=== PATIENT | female | born 1950 ===

== ENCOUNTER 2022-06-23 11:22 | Inpatient (IN) | payer BC, OTHER ==
[2022-06-23] MEDS ORDERED: RAPID SEQUENCE INTUBATION KIT NR ONE (11:32)
[2022-06-23] MEDS ORDERED: PROPOFOL 1,000,000 MCG/100 ML VIAL ONE (11:39)
[2022-06-23 11:40] VITALS: BMI 40.3
[2022-06-23 13:00] LABS: VENOUS BASE EXCESS -15.5 mmol/L (-2-2); VENOUS O2 SATURATION 67.8 % (70-80); VENOUS PCO2 50.2 mmHg (38-52)
[2022-06-23 13:03] LABS: VENOUS PH 7.065 (7.310-7.410)
[2022-06-23] MEDS ORDERED: CEFEPIME HCL/D5W 1 GM/50 ML BAG IVPB ONE (13:14)
[2022-06-23] MEDS ORDERED: VANCOMYCIN 1 GM in D5W (PRE-DOCKED) 1,000 MG/250 ML (RESTRICTED TO ID ONLY IVPB ONE (13:14)
[2022-06-23] MEDS ORDERED: PROPOFOL 1,000,000 MCG/100 ML VIAL IVPB SCH (13:15)
[2022-06-23 13:16] LABS: POTASSIUM 3.3 mmol/L (3.5-5.1)
[2022-06-23] MEDS ORDERED: NOREPINEPHRINE BITARTRATE 4 MG/4 ML ML IV ONE (13:16)
[2022-06-23 13:18] LABS: CALCIUM 7.7 mg/dL (8.5-10.1)
[2022-06-23 13:18] LABS: INR 1.03 (0.83-1.09)
[2022-06-23 13:19] LABS: ALBUMIN 2.1 g/dl (3.4-5.0); BLOOD UREA NITROGEN 42.2 mg/dL (7-18); MAGNESIUM 1.9 mg/dL (1.8-2.4)
[2022-06-23 13:20] LABS: ACTIVATED PTT 18.4 SECONDS (25.2-36.5)
[2022-06-23] MEDS ORDERED: CALCIUM GLUC IN NACL, ISO-OSM 1 GM/50 ML BAG IVPB ONE (13:20)
[2022-06-23 13:22] LABS: CREATININE 2.5 mg/dL (0.55-1.3)
[2022-06-23 13:24] LABS: BILIRUBIN,TOTAL 0.6 mg/dL (0.2-1); TOT PROT 5.2 g/dl (6.4-8.2)
[2022-06-23 13:27] LABS: LACTIC ACID 12.1 mmol/L (0.4-2.0); N-TERMINAL BNP 1934.1 pg/ml (5-125)
[2022-06-23] MEDS: NOREPINEPHRINE BITARTRATE/D5W 8 MG/250 ML BAG IVPB SCH ×2 (13:30→17:44)
[2022-06-23] MEDS ORDERED: KCL 10 MEQ IVPB 10 MEQ/100 ML INFUS.BAG IVPB SCH (13:30)
[2022-06-23 13:32] LABS: PHOSPHOROUS 4.1 mg/dL (2.5-4.9)
[2022-06-23] MEDS ORDERED: VANCOMYCIN/WATER FOR INJ (PEG) 1,000 MG/200 ML BAG IVPB ONE (13:34)
[2022-06-23] MEDS ORDERED: CEFEPIME 1 GM/100 ML BAG IVPB ONE (13:36)
[2022-06-23] MEDS ORDERED: CALCIUM GLUCONATE 10% - 1,000 MG/10 ML VIAL ONE (13:43)
[2022-06-23] MEDS ORDERED: MIDAZOLAM IN 0.9 % SOD.CHLORID 100 MG/100 ML PLAST..BAG IVPB SCH (13:45)
[2022-06-23 14:44] LABS: BASO % 2.2 % (0-2.0); EOS % 0.5 % (0-4.5); HEMOGLOBIN 7.7 GM/dL (10.7-15.3); LYMPH % 33.4 % (8-40); MCH 26.1 pg (25.7-33.7); MCHC 30.9 g/dl (32.0-36.0); MEAN CELL VOLUME 84.7 fl (80-96); MONO % 1.7 % (3.8-10.2); NEUT % 62.2 % (42.8-82.8); PLATELET COUNT 164 10^3/uL (134-434); RBC 2.95 M/mm3 (3.60-5.2)
[2022-06-23 15:00] LABS: VENOUS BASE EXCESS -17.3 mmol/L (-2-2); VENOUS O2 SATURATION 62.8 % (70-80); VENOUS PCO2 65.8 mmHg (38-52)
[2022-06-23 15:00] LABS: CHLORIDE 119 mmol/L (98-107); SODIUM 153 mmol/L (136-145)
[2022-06-23 15:01] LABS: VENOUS PH 6.95 (7.310-7.410)
[2022-06-23 15:02] LABS: ALBUMIN 1.8 g/dl (3.4-5.0); BLOOD UREA NITROGEN 39.7 mg/dL (7-18); CALCIUM 7.9 mg/dL (8.5-10.1); CO2 19 mmol/L (21-32); GLUCOSE,RANDOM 215 mg/dL (74-106)
[2022-06-23 15:05] LABS: CREATININE 2.6 mg/dL (0.55-1.3); SGOT/AST 51 U/L (15-37); SGPT/ALT 37 U/L (13-61)
[2022-06-23 15:07] LABS: BILIRUBIN,TOTAL 0.6 mg/dL (0.2-1); TOT PROT 4.2 g/dl (6.4-8.2)
[2022-06-23] MEDS ORDERED: SODIUM BICARBONATE 8.4% 50 MEQ/50 ML DISP.SYRIN ONE (15:07)
[2022-06-23 15:08] LABS: ALK PHOS 175 U/L (45-117)
[2022-06-23] MEDS ORDERED: SODIUM BICARBONATE 8.4% 50 MEQ/50 ML VIAL IV ONE (15:08)
[2022-06-23 15:15] LABS: ANION GAP 16 MMOL/L (8-16); POTASSIUM 2.1 mmol/L (3.5-5.1)
[2022-06-23] MEDS: VASOPRESSIN 40 UNITS/100 ML BAG IV SCH ×2 (15:35→17:45)
[2022-06-23] MEDS ORDERED: VASOPRESSIN 20 UNITS/ML VIAL IV ONE ×2 (15:35→17:44)
[2022-06-23 15:48] LABS: MAGNESIUM 1.8 mg/dL (1.8-2.4)
[2022-06-23] MEDS ORDERED: FENTANYL NS IVPB 500 MCG/100 ML BAG IVPB SCH (16:00)
[2022-06-23 16:15] LABS: ARTERIAL BLD GAS O2 SATURATION 79.6 % (95-98); ARTERIAL BLOOD GAS BASE EXCESS -16.7 mmol/L (-2-2); ARTERIAL BLOOD GAS PO2 67.1 mmHg (80-100)
[2022-06-23 16:18] LABS: ARTERIAL BLOOD GAS pH 6.965 (7.350-7.450)
[2022-06-23 16:42] LABS: POTASSIUM 3.3 mmol/L (3.5-5.1)
[2022-06-23 16:44] LABS: ALBUMIN 1.7 g/dl (3.4-5.0); BLOOD UREA NITROGEN 39.8 mg/dL (7-18); CALCIUM 8.1 mg/dL (8.5-10.1)
[2022-06-23 16:47] LABS: CREATININE 2.5 mg/dL (0.55-1.3)
[2022-06-23 16:49] LABS: BILIRUBIN,TOTAL 0.6 mg/dL (0.2-1); TOT PROT 4.1 g/dl (6.4-8.2)
[2022-06-23] MEDS ORDERED: LACTATED RINGERS SOLUTION 1000 ML INFUS.BAG IV ONE (17:30)
[2022-06-23 17:39] LABS: EPI CELLS 8 /uL (0-25.1); HYALINE CASTS 1 /uL (0-3.1); URINE APPEARANCE TURBID; URINE BILIRUBIN NEGATIVE (NEGATIVE); URINE COLOR DK YELLOW; URINE GLUCOSE (UA) NEGATIVE (NEGATIVE); URINE KETONE NEGATIVE (NEGATIVE); URINE LEUK ESTERASE 3+ (NEGATIVE); URINE NITRITE NEGATIVE (NEGATIVE); URINE PROTEIN 2+ (NEGATIVE); URINE UROBILINOGEN 0.2 mg/dL (0.2-1.0); URINE WBC 11384 /uL (0-25.8)
[2022-06-23] MEDS: EPINEPHrine 1:1,000 1,000 MCG in DEXTROSE 5%-WATER - 249 ML IVPB SCH ×2 (17:57→18:22)
[2022-06-23 17:58] LABS: URINE BACTERIA MANY /uL (0-1359)
[2022-06-23 17:59] LABS: URINE CRYSTALS NONE SEEN /hpf; YEAST PRESENT (NEGATIVE)
[2022-06-23] MEDS ORDERED: EPINEPHrine 1:1,000 1,000 MCG in DEXTROSE 5%-WATER - 249 ML IVPB SCH ×2 (18:13→18:30)
[2022-06-23] MEDS ORDERED: SODIUM BICARBONATE 8.4% 50 MEQ/50 ML DISP.SYRIN IVPUSH STA ×2 (18:39→18:45)
[2022-06-23] MEDS ORDERED: SODIUM BICARBONATE 8.4% - 150 MEQ in DEXTROSE 5%-WATER - 950 ML IVPB SCH (19:00)
[2022-06-23 19:18] VITALS: RESP 24
[2022-06-23] MEDS ORDERED: SODIUM BICARBONATE 8.4% 50 MEQ/50 ML DISP.SYRIN IVPUSH ONE (19:29)
[2022-06-23] MEDS ORDERED: HYDROCORTISONE SOD SUCCINATE 100 MG/2 ML VIAL IVPB SCH (19:30)
[2022-06-23 19:33] VITALS: TEMP 90.5
[2022-06-23 19:35] VITALS: BP 84/55; PULSE 79
[2022-06-23 20:47] LABS: POTASSIUM 4.8 mmol/L (3.5-5.1)
[2022-06-23 20:51] LABS: BLOOD UREA NITROGEN 38.6 mg/dL (7-18)
[2022-06-23 20:54] LABS: CREATININE 2.5 mg/dL (0.55-1.3); PHOSPHOROUS 7.2 mg/dL (2.5-4.9)
[2022-06-23] MEDS ORDERED: CEFEPIME 1 GM in DEXTROSE 5%-WATER 100 ML IVPB SCH (22:00)
[2022-06-23 22:14] LABS: LACTIC ACID 23.4 mmol/L (0.4-2.0)
== END 2022-06-23 20:24 | disposition expired | DRG 208 ==
LOC: JER 11:22 → JERBED 14:32 → JICU 17:38
PROVIDERS: ADMIT Internal Medicine Pulmonary Disease; ATTEND Internal Medicine Pulmonary Disease
PROC: 5A1935Z Respiratory Ventilation, Less than 24 Consecutive Hours (ICD-10-PCS; principal; 2022-06-23)
PROC: 0BH17EZ Insertion of Endotracheal Airway into Trachea, Via Natural or Artificial Opening (ICD-10-PCS; 2022-06-23)
PROC: 5A12012 Performance of Cardiac Output, Single, Manual (ICD-10-PCS; 2022-06-23)
PROC: 05HM33Z Insertion of Infusion Device into Right Internal Jugular Vein, Percutaneous Approach (ICD-10-PCS; 2022-06-23)
PROC: 4A133B1 Monitoring of Arterial Pressure, Peripheral, Percutaneous Approach (ICD-10-PCS; 2022-06-23)
PROC: 4A133J1 Monitoring of Arterial Pulse, Peripheral, Percutaneous Approach (ICD-10-PCS; 2022-06-23)
DX: J96.01 Acute respiratory failure with hypoxia (principal); N17.9 Acute kidney failure, unspecified; R57.9 Shock, unspecified; E87.20 Acidosis, unspecified; N39.0 Urinary tract infection, site not specified; I46.9 Cardiac arrest, cause unspecified; I10 Essential (primary) hypertension; R62.7 Adult failure to thrive
CPT/HCPCS: 31500; 36415; 36600; 70450-TC; 71045-TC-FY; 80048; 80053; 81003; 82550; 82803; 82962; 83605; 83735; 83880; 84100; 84443; 84484; 85025; 85610; 85730; 86850; 86900; 86901; 87040; 87086; 93005; 93010; 99291; C9803-CS; J3490; U0003; U0005